=== PATIENT | male | born 1970 | race Caucasian/White ===

== ENCOUNTER 2023-07-01 11:45 | Outpatient (OUT) | payer BC, SELFPAY ==
[2023-07-01 12:01] LABS: Basophils Absolute Auto 0.1 10^3/uL (0.0-0.1); Basophils Percent Auto 0.9 % (0.2-2.0); Eosinophils Absolute Auto 0.2 10^3/uL (0.0-0.7); Eosinophils Percent Auto 2.4 % (0.9-7.0); Hematocrit 45.4 % (42.0-54.0); Hemoglobin 15.6 g/dL (14.0-18.0); Immature Granulocytes Abs Auto 0.02 10^3/uL (0.00-0.03); Immature Granulocytes Pct Auto 0.3 % (0.0-0.5); Lymphocytes Percent Auto 30.2 % (20.5-60.0); Mean Corpuscular HGB Conc 34.4 g/dL (29.9-35.2); Mean Corpuscular Hemoglobin 29.9 pg (25.9-34.0); Mean Corpuscular Volume 87.1 fL (80.0-94.0); Mean Platelet Volume 11.1 fL (9.5-13.5); Monocytes Absolute Auto 0.6 10^3/uL (0.3-0.8); Monocytes Percent Auto 9.5 % (1.7-12.0); Neutrophils Absolute Auto 3.8 10^3/uL (1.4-6.5); Neutrophils Percent Auto 56.7 % (43.0-75.0); Platelet Count 221 10^3/uL (150-450); Red Blood Count 5.21 10^6/uL (4.70-6.10); Red Cell Distribution Width 12.1 % (11.0-15.0); White Blood Count 6.7 10^3/uL (4.0-11.0)
[2023-07-01 12:29] LABS: Alanine Aminotransferase 56 U/L (16-63); Albumin Globulin Ratio 1.1; Albumin Level 3.8 g/dL (3.4-5.0); Alkaline Phosphatase 75 U/L (46-116); Anion Gap 13.6; Aspartate Amino Transferase 23 U/L (15-37); Bilirubin Total 0.6 mg/dL (0.2-1.0); Calcium 8.7 mg/dL (8.5-10.1); Carbon Dioxide 28.2 mmol/L (21.0-32.0); Chloride 102 mmol/L (98-107); Chol HDL Ratio 4.9; Cholesterol 207 mg/dL (<=200); Estimated GFR (African America >60 (>=60); Estimated GFR (Non-African Ame >60 (>=60); Globulin 3.4 g/dL; Glucose 94 mg/dL (74-106); HDL Cholesterol 42 mg/dL (40-60); Potassium 3.8 mmol/L (3.5-5.1); Sodium 140 mmol/L (136-145); Total Protein 7.2 g/dL (6.4-8.2); Triglycerides 226 mg/dL (<=150); VLDL CHOLESTEROL 45.2 mg/dL
[2023-07-01 13:56] LABS: Prostate Specific Antigen Scrn 1.35 ng/mL (<=4.00)
== END 2023-07-01 11:46 | disposition home or self-care (01) ==
LOC: LAB 11:48
PROVIDERS: PCP Internal Medicine; Visit Provider Internal Medicine
DX: Z00.00 Encounter for general adult medical examination without abnormal findings (principal); Z12.5 Encounter for screening for malignant neoplasm of prostate
CPT/HCPCS: 36415; 80053; 80061; 85025; G0103

== ENCOUNTER 2025-03-14 10:15 | Outpatient (OUT) | payer BC, SELFPAY ==
--- OUTSIDE RECORDS SUMMARY | 2025-03-11 07:23 | XMS_ITS | Continuity of Care Document ---
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 Name Role Phone Bharat Smith DO Primary Care Provider Bharat Smith DO Attending Provider Care Teams Patient Care Team Team Status: Active Member Role/Relationship Status Dates Bharat Smith DO Primary Care Provider Active Patient Care Team Team Status: Inactive Member Role/Relationship Status Dates Bharat Smith DO Primary Care Provider Active Start: March 11, 2025 End: March 11enjuancarlos Smith DOAttending ProviderActiveStart: March 11, 2025 End: March 11, 2025 Chief Complaint and Reason for Visit Chief Complaint Admit Date Wellness March 11, 2025 1 1:04am Reason for Visit Admit Date Family history of prostate cancer in fat her March 11, 2025 11:04am Gastro-esophageal reflux disease with es ophagitis March 11, 2025 11:04am Major depressive disorder, recurrent, in partial remission March 11, 2025 11:04am Migraine March 11, 2025 1 1:04am Screening PSA (prostate specific antigen ) March 11, 2025 11:04am Wellness examination March 11, 2025 11:04am Allergies, Adverse Reactions, Alerts Allergen Type Severity Reaction Last Updated Verified Status Sulfa (Sulfonamide Antibiotics) Allergy Unknown Unknown Reaction March 11, 2025 11:38am Yes Active Social History Smoking Status Status Start Date End Date Date of Observa tion Never smoked tobacco (finding) May 26, 2023 10:48am Observation Status Observation Response Date of Response Legal Sex Male (finding) Sex Assigned At BirthMaleSeptember 1970 Family History Relationship Condition Age at Onset Recorded Date/T molly family member Family history of ma lignant neoplasm of breast Unknown motherMalignant neoplasmUnknownHypertensionUnknown Problems Active Problems Problem Diagnosis/Recorded Date Onset Date Stat us ADRIANA (generalized anxiety disorder) May 26, 2023 10:45am Unknown Active Gastro-esophageal reflux dis ease with esophagitis May 26, 2023 10:45am Unknown Active Cerumen impaction November 17, 2023 2:48pm Unknown Active Tinea corporis May 26, 2023 10:45am Unknown Active Migraine June 23, 2023 2:10pm Unknown Acti ve Cervical spondylosis May 26, 2023 10:45am Unkno wn Active Family history of prostate c ancer in father May 26, 2023 10:45am Unknown Active Plantar fasciitis November 17, 2023 2:48pm Unknown Active Major depressive disorder, r ecurrent, in partial remission May 26, 2023 10:45am Unknown Active Medications Medication Status Dose Units Route Directions Qty Days Refills S tart Date Stop Date End Date Reason(s) Instructions Adherence Metoprolol Tartrate 50 mg tablet Discontinued 25 MG PO Twice daily June 19, 2023 10:18amMarch 2023 11:30amMetoprolol Tartrate 50 mg tablet Figeodlymtzm60HGCLGgktc ayiix91524Glncd 2023 11:29amMarch 2023 8:36amMetoprolol Tartrate 50 mg tabletDiscontinued0.ROUTE.XXZQPJL446Uyvy 2023 11:52amDece2024 11:45amTAKE 1/2 TABLET BY MOUTH TWICE A DAY FOR 90 DAYSSumatriptan Succinate 50 mg tabletDiscontinued0.ROUTE.MCFUHWV42Sovhbuv 2024 2:02pmDecemb2024 12:10pmTAKE 1 TABLET BY MOUTH DAILY NEEDED FOR HEADACHE MAY REPEAT 1 TABLET IN 2 HOURS IF NEEDEDSumatriptan Succinate 50 mg uvepreWkhdqldfyxgl57XEBXDscxiald 2023 12:00amJanuary 2024 2:03pmTAKE 1 TABLET BY MOUTH DAILY NEEDED FOR HEADACHE MAY REPEAT 1 TABLET IN 2 HOURS IF NEEDEDBupropion Hcl 300 mg tablet extended release 24 hr Xwuqrrrenazn623NROUAdaalZkpchwwf 2023 12:00amDecember 5th, 2025 11:45am Mirtazapine 30 mg rxyjqlEhpmgcdfgknv31TXOJCjlxyXdunhdrd 2023 12:00am March 11, 2025 11:45amPantoprazole 40 mg tablet,delayed release (DR/EC) Yjqehygttlwl42HZMHCqgmccvp 2023 12:00am2024 11:45amon an empty stomach followed in 30 minutes w /breakfastAlprazolam (Xanax) 0.25 mg tabletDiscontinued0.25MGPOEvery 8 hours as neededAbrazo Central Campusuary 2023 12:00am March 11, 2025 11:45amAmoxicillin-Pot Clavulanate 875-125 mg tablet Lyuwgjlkqavd9GYQFSJthdk 12 vqejh2312Okdpuydd 2023 12:00amMarch 2023 8:35amMetoprolol Tartrate 50 mg uttmxuXndllmsfanxa45OQKRSomjdFftzl 2023 11:[facility]pmNov[facility] 20[facility] 11:52amAmoxicillin-Pot Clavulanate 875-125 mg tablet Ktytbemjcqpg5NTUJNSpboo 12 nwmqo4347Qyf 5th, 2024 11:00pmb[facility] 2024 11:39amSumatriptan Succinate 50 mg tabletActive0.ROUTE.SDLRYNW04EjdtfopnMarch 11, 2025 12:09pmTAKE 1 TABLET BY MOUTH DAILY NEEDED FOR HEADACHE MAY REPEAT 1 TABLET IN 2 HOURS IF NEEDEDComplies with drug therapyMetoprolol Tartrate 50 mg anjcivMyhykknxjzbg64PGWDUpghoHumql 2023 11:[facility]pm[facility] 20[facility] 10:19am take 1/2 tablet twice a day Vital Signs Vital Reading Result Reference Range Collection Date/Time Height 74 [in_i] March 11, 2025 11:85peFelaes598.86 [facility]20[facility] 11:46amHeart Rate66 /vnf86-104RpkkeddeMarch 11, 2025 11:46amRespiratory rate12 /xjm92-41Jqhgkvze 5th, 2025 11:46amBP Dskfzpsh156 mm[Hg]100-140March 11, 2025 11:46amBP Odmgbhnhr50 mm[Hg]60-100De2024 11:46amBMI (Body Mass Index)30.8 kg/x9EgmopebpMarch 11, 2025 11:46am Advance Directives Advance Directive Response Recorded Date/ Time Advance Directives No May 9:48am Insurance Providers Guarantor Kaila Welch Address [address] [address]Contact Info.Home Phone: Payer Group Member ID Coverage Type Subscriber Relationship to Subscriber Effective Date Expiration Date MMO Id: [id number] Andrews , D Id: [id number] [address] [facility] [address] Home Phone: Email: [email or web address] HARRIS Id: [id number] Andrews , D Id: [id number] [address] [id number] Home Phone: Email: [email or web address] Encounters Encounter Location(s) Arrival/Admit Date Discharge/Departure Date Discharge/Departure Disposition Provider(s) Departed Physician/ Provider Office Visit -[facility] March 11, 2025 11:04am March 11, 2025 12:22pm Discharged to home care or self care (routine discharge) Bharat Smith , Recent Diagnosis Onset Date Admit Date Family history of prostate cancer in father Unkn own March 11, 2025 11:04am Gastro-esophageal reflux dis ease with esophagitis Unknown March 11, 2025 11:04am Major depressive disorder, r ecurrent, in partial remission Unknown March 11, 2025 11:04am Migraine Unknown March 11 11:04am Screening PSA (prostate specific antigen) Unknow n March 11, 2025 11:04am Wellness examination Unknown March 11:04am Assessments Diagnosis Onset Date Resolution Status Admit Date Family history of prostate cancer in fat her acuteMarch 11, 2025 11:04amGastro-esophageal reflux disease with esophagitis acuteDe2024 11:04amMajor depressive disorder, recurrent, in partial remissionacuteD[facility] 2024 11:04amMigraineacuteDedignity [facility] 2024 11:04am Screening PSA (prostate specific antigen)noneactiveDecebanner [facility] 2024 11:04am Wellness examinationnoneactiveCon[facility] 2024 11:04am Plan of Treatment Author Bharat Smith [facility] HospitalAuthoredConemaugh [facility] 2024 8:56pmI have instructed this patient on a healthy diet and exercise program. I have also reviewed age-appropriate preventive testing recommended. Mood stable w/o treatment. Instructed on a healthy diet and exercise routine. Instructed to continue medical treatment w/o interruption. Instructed to avoid abrupt d/c of medication due to w/d symptoms. I have instructed this patient to avoid lying flat after eating.?? I have also recommended to avoid eating 2 hours prior to bedtime.?? They were also informed that smaller, frequent meals may be better tolerated. I have discussed additional treatment options for persistent symptoms, which includes: weight loss, H2 blockers and PPI. I have also instructed them to notify the office with any pain or difficulty swallowing. Limited to 2/month. Continue preventive treatment, unable to titrate BB due to bradycardia Elavil failed to help Drug interactions prohibit anticonvulsants May require referral to Neurology for uncontrolled WATERMAN I have recommended yearly PSA testing. I have informed him that the PSA can be elevated w/ cancer, infection and enlarged prostates. I have explained to the patient, that If his PSA is elevated, while there are many causes, referral will be recommended to r/o cancer. He would be referred to Urology, who may recommend an MRI, TRUS/bx or possibly continued monitoring. He is agreeable to this plan of action PSA: 1.35 - 06/2023 Increased risk for personal hx of prostate cancer. Recommend yearly screening Future Tests Future scheduled test information is unavailable Pending Tests Test Name Ordered Date Scheduled Date Comprehensive Metabolic Panel March 11, 2025 12:13pm Future Visits Future appointment information is unavailable Future Procedures Procedure Name Ordered Date Scheduled Date Complete Blood Count Auto Diff March 11 12:13pm Lipid PanelDece2024 12:13pmPSA Screen (Yearly Only)March 11, 2025 12:13pm Future Medications Future medication information is unavailable Patient Instructions Patient instructions are unavailable
[2025-03-14 10:44] LABS: Hematocrit 48.1 % (42.0-54.0); Hemoglobin 16.6 g/dL (14.0-18.0); Immature Granulocytes Abs Auto 0.02 10^3/uL (0.00-0.03); Immature Granulocytes Pct Auto 0.3 % (0.0-0.5); Lymphocytes Absolute Auto 1.3 10^3/uL (1.2-3.8); Mean Corpuscular HGB Conc 34.5 g/dL (29.9-35.2); Mean Corpuscular Hemoglobin 29.8 pg (25.9-34.0); Mean Corpuscular Volume 86.4 fL (80.0-94.0); Platelet Count 241 10^3/uL (150-450); Red Blood Count 5.57 10^6/uL (4.70-6.10); White Blood Count 6.3 10^3/uL (4.0-11.0)
[2025-03-14 12:03] LABS: Alanine Aminotransferase 60 U/L (16-63); Albumin Globulin Ratio 1.2; Albumin Level 4.1 g/dL (3.4-5.0); Alkaline Phosphatase 74 U/L (46-116); Anion Gap 10.4; Aspartate Amino Transferase 27 U/L (15-37); Blood Urea Nitrogen 13.0 mg/dL (7.0-18.0); Calcium 9.3 mg/dL (8.5-10.1); Carbon Dioxide 29.4 mmol/L (21.0-32.0); Chloride 104 mmol/L (98-107); Cholesterol 220 mg/dL (<=200); Estimated GFR (African America >60 (>=60 mL/min/1.73m^2); Estimated GFR (Non-African Ame >60 (>=60 mL/min/1.73m^2); Globulin 3.4 g/dL; Glucose 96 mg/dL (74-106); HDL Cholesterol 43 mg/dL (40-60); Potassium 4.8 mmol/L (3.5-5.1); Sodium 139 mmol/L (136-145); Total Protein 7.5 g/dL (6.4-8.2); Triglycerides 198 mg/dL (<=150); VLDL CHOLESTEROL 39.6 mg/dL
== END 2025-03-14 10:16 | disposition home or self-care (01) ==
PROVIDERS: PCP Internal Medicine; Visit Provider Internal Medicine
DX: Z00.00 Encounter for general adult medical examination without abnormal findings (principal); Z12.5 Encounter for screening for malignant neoplasm of prostate
CPT/HCPCS: 36415; 80053; 80061; 85025; G0103